=== PATIENT | female | born 1995 | race Caucasian/White ===

== ENCOUNTER 2020-06-21 23:52 | Emergency (ER) | payer OTHER ==
--- NOTE | 2020-06-22 01:55 | ER Document Report ---
ED Medical Screen (RME) - General Chief Complaint: Head Injury with LOC Stated Complaint: FALL IN SHOWER/PASSED OUT BRIEFLY Time Seen by Provider: 06/22/20 01:46 Mode of Arrival: Ambulatory Information source: Patient Notes: Patient presents to the ER for evaluation of headache with dizziness that began after a slip and fall in the shower approximately 1 hour prior to arrival. She admits to a brief loss of consciousness. She denies neck pain. She denies back pain. She is ambulatory without assistance. She denies nausea or vomiting. Exam CONSTITUTIONAL: Well appearing in no acute distress PULMONARY: Normal chest rise and fall, no respiratory distress or stridor CARDIOVASCULAR: Regular rate, distal extremities are warm and well perfused NEUROLOGIC: Normal speech, moves all extremities. Cranial nerves within normal notes. 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 I have greeted and performed a rapid initial assessment of this patient. A comprehensive ED assessment and evaluation of the patient, analysis of test results and completion of the medical decision making process will be conducted by additional ED providers. Dictation of this chart was performed using voice recognition software; therefore, there may be some unintended grammatical errors. Physical Exam - Vital signs Vitals: Temp Pulse Resp BP Pulse Ox 98.1 F 61 16 103/68 100 06/22/20 00:48 06/22/20 00:48 06/22/20 00:48 06/22/20 00:48 06/22/20 00:48 Course - Vital Signs Vital signs: Temp Pulse Resp BP Pulse Ox 98.1 F 61 16 103/68 100 06/22/20 00:48 06/22/20 00:48 06/22/20 00:48 06/22/20 00:48 06/22/20 00:48
--- NOTE | 2020-06-22 02:40 | RADIOLOGY REPORT (SQ) ---
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 COMPARISON: None available TECHNIQUE: Multiple axial contiguous images were obtained through the head without intravenous contrast administered. This exam was performed according to our departmental dose-optimization program, which includes automated exposure control, adjustment of the mA and/or KV according to the patient's size and/or use of iterative reconstruction technique. FINDINGS: The ventricles are within normal limits for size. Both orbits appear unremarkable. The mastoid air cells appear clear. The visualized paranasal sinuses appear clear. The calvarium is intact. No extra-axial fluid collection is seen. The rivera-white matter differentiation is within normal limits. No midline shift or mass effect is apparent. There are no findings to suggest acute intracranial hemorrhage. IMPRESSION: No acute intracranial hemorrhage is seen.
--- NOTE | 2020-06-22 02:45 | ER Document Report ---
ED Head/Face/Scalp Injury - General Chief Complaint: Head Injury Stated Complaint: FALL IN SHOWER/PASSED OUT BRIEFLY Time Seen by Provider: 06/22/20 01:46 Mode of Arrival: Ambulatory Notes: Patient is a 25-year-old female who comes emergency department for chief complaint of a fall in the shower with head injury and hematoma to the left forehead area. She states that she slipped in the shower, struck her head on the counter adjacent to the shower, she states she feels like she blacked out for a few seconds but denies passing out or hitting the floor. She denies neck pain, she denies focal numbness or weakness, visual changes, vomiting, or any other complaints except for a mild headache. She denies . She is not on any daily medications. Past Medical History - General Information source: Patient - Social History Smoking Status: Never Smoker Frequency of alcohol use: None Drug Abuse: None Lives with: Family Family History: Reviewed & Not Pertinent - Medical History Medical History: Negative Surgical Hx: Negative - Immunizations Immunizations up to date: Yes Hx Diphtheria, Pertussis, Tetanus Vaccination: Yes Review of Systems - Review of Systems Constitutional: No symptoms reported EENT: No symptoms reported Cardiovascular: No symptoms reported Respiratory: No symptoms reported Gastrointestinal: No symptoms reported Genitourinary: No symptoms reported Female Genitourinary: No symptoms reported Musculoskeletal: See HPI Skin: No symptoms reported Hematologic/Lymphatic: No symptoms reported Neurological/Psychological: See HPI Physical Exam - Vital signs Vitals: Temp Pulse Resp BP Pulse Ox 98.1 F 61 16 103/68 100 06/22/20 00:48 06/22/20 00:48 06/22/20 00:48 06/22/20 00:48 06/22/20 00:48 - Notes Notes: GENERAL: Alert, interacts well. No acute distress. HEAD: Normocephalic. Hematoma noted over the left upper forehead without open wounds. No other signs of trauma. EYES: Pupils equal, round, and reactive to light. Extraocular movements intact. Mild nystagmus horizontally especially noticeable to the right ENT: Oral mucosa moist, tongue midline. Oropharynx unremarkable. Airway patent. Nares patent, sinuses non-tender, ear canals unremarkable, TM's intact. NECK: Full range of motion. Supple. Trachea midline. No lymphadenopathy. LUNGS: Clear to auscultation bilaterally, no wheezes, rales, or rhonchi. No respiratory distress. Non-tender chest wall. HEART: Regular rate and rhythm. No murmur ABDOMEN: Soft, non-tender. Non-distended. Bowel sounds present in all 4 quadrants. GENITOURINARY: Deferred EXTREMITIES: Moves all 4 extremities spontaneously. No edema, normal radial and dorsalis pedis pulses bilaterally. No cyanosis. BACK: no cervical, thoracic, lumbar midline tenderness. No saddle anesthesia, normal distal neurovascular exam. Moves all extremities in full range of motion. NEUROLOGICAL: Alert and oriented x3. Normal speech. Cranial nerves II through XII grossly intact. Strength 5/5 in all extremities. PSYCH: Normal affect, normal mood. SKIN: Warm, dry, normal turgor. No rashes or lesions noted. Course - Re-evaluation Re-evalutation: Patient has a mild headache and mild nystagmus horizontally to the right on exam but her evaluation is otherwise unremarkable except for the hematoma to the left forehead. Patient questionably passed out, I actually do not believe that she did, her neck exam is normal, her neurological exam is unremarkable, I did review CAT scan of the head from triage and this was negative for acute findings. I suspect patient had a concussion but I do not suspect concerning intracranial or neurologic injury. I discussed with patient expectations, follow-up, return precautions, provided with work and school release, discussed with significant other. They state appreciation and agreement. Patient well- appearing and stable at time of discharge. - Vital Signs Vital signs: Temp Pulse Resp BP Pulse Ox 98.1 F 81 14 109/71 100 06/22/20 02:55 06/22/20 02:55 06/22/20 02:55 06/22/20 02:55 06/22/20 02:55 Discharge - Discharge Clinical Impression: Head injury Qualifiers: Encounter type: initial encounter Qualified Code(s): S09.90XA - Unspecified injury of head, initial encounter Traumatic hematoma of forehead Qualifiers: Encounter type: initial encounter Qualified Code(s): S00.83XA - Contusion of other part of head, initial encounter Condition: Stable Disposition: HOME, SELF-CARE Additional Instructions: Your evaluation is consistent with a concussion. The CAT scan of your head only shows the hematoma, no concerning findings, the hematoma will resolve with time. You can apply ice to the area a few times a day. Take Tylenol and ibuprofen for headaches if needed. You will likely have symptoms of a concussion including difficulty focusing, lightheadedness, nausea, the sensation that something is just not right. Make sure you get a lot of sleep for the next several days as you recover. Symptoms should simply resolve, follow-up with primary care for additional management. Please follow head injury precautions listed below, return for any concerning symptoms. Head Injury Precautions At this point, there is no evidence that your head injury is serious. Observation is necessary, however. Limit activity for the first 24 hours. During the first 24 hours, check to see approximately every two to three hours that the patient is easily arousable, responds normally, and can perform common tasks such as walking without difficulty. Contact your doctor or go to the hospital if any of the following things occur: Persistent vomiting, difficulty in arousing the patient, worsening or continued headache, or failure to improve as expected. Head injuries can cause symptoms that persist for a few days or even a few weeks. Forms: Return to School, Return to Work, Treatment of Relative/Child
[2020-06-22 03:03] VITALS: BP 109/71
--- NOTE | 2020-06-22 06:42 | EKG REPORT ---
SEVERITY:- OTHERWISE NORMAL ECG - SINUS RHYTHM (COR SINUS RHYTHM) : Confirmed by: Armando Denton MD 22-Jun-2020 06:41:43
== END 2020-06-22 02:56 | disposition home or self-care (01) ==
LOC: ER 23:52
DX: S09.90XA Unspecified injury of head, initial encounter (principal); S00.83XA Contusion of other part of head, initial encounter; W18.2XXA Fall in (into) shower or empty bathtub, initial encounter
CPT/HCPCS: 70450; 93005; 93010; 99284